=== PATIENT | male | born 1970 | race Caucasian/White ===

== ENCOUNTER 2017-09-10 13:20 | Emergency (ER) | payer OTHER ==
[~2017-09-10] VITALS: Ht 177.8 cm; Wt 106.0 kg
[2017-09-10 13:23] VITALS: BP 130/85; PULSE 67; RESP 18; TEMP 98.2; O2SAT 100
[2017-09-10] MEDS ORDERED: RESP: ALBUTEROL 2.5 MG/IPRATROPIUM 0.5 MG NEB (SCH) NEB ONE (13:45)
[2017-09-10] MEDS ORDERED: AMOX500C PO (13:54)
[2017-09-10] MEDS ORDERED: LIDO1SOL8 SWISH-SWAL (13:54)
[2017-09-10] MEDS ORDERED: VENL150C39 PO (13:54)
[2017-09-10] MEDS ORDERED: MEDR4TAB PO (13:54)
[2017-09-10] MEDS ORDERED: DOXY1LIQ3 PO (14:55)
[2017-09-10] MEDS ORDERED: AZIT250T3 PO (14:55)
[2017-09-10] MEDS ORDERED: ALBU6.7H INH (14:55)
--- NOTE | 2017-09-10 14:55 | PD ---
HPI Chief Complaint: Respiratory Symptoms Time Seen by Provider: 13:39 Travel History International Travel<30 days: No Contact w/Intl Traveler<30days: No Traveled to known affect area: No History of Present Illness HPI So 47-year-old man who presents to the emergency department complaining of flulike symptoms starting about 2 weeks ago, worsening gradually with productive cough and subjective chills and some shortness of breath. He started amoxicillin week ago but is been only taking it once daily by mistake. He started a prednisone pack past 2-3 days as well. He otherwise has been feeling generally well and healthy. No nausea or vomiting. His a history of Crohn's disease, is on Asacol. History Past Medical History Narrative Medical Crohn's disease Tetanus Vaccination: Unknown Influenza Vaccination: No Social History Alcohol Use: Yes (social) Tobacco Use: No Allergies-Medications (Allergen,Severity, Reaction): Coded Allergies: No Known Drug Allergies (Verified Allergy, Unknown, 09/10/17) Reported Meds & Prescriptions Reported Meds & Active Scripts Active Reported Medrol (Methylprednisolone) 4 Mg Tab 4 Mg PO DAILY Lidocaine Viscous Liq 2 % Liqd 5 Ml SWISH-SWAL DIRECTED PRN Venlafaxine ER 24 HR (Venlafaxine HCl) 150 Mg Cap 150 Mg PO DAILY Amoxicillin 500 Mg Cap 500 Mg PO BID Review of Systems Except as stated in HPI: all other systems reviewed are Neg Physical Exam Narrative GENERAL: Well-appearing 47-year-old man, no acute distress. SKIN: Focused skin assessment warm/dry. HEAD: Atraumatic. Normocephalic. EYES: Pupils equal and round. No scleral icterus. No injection or drainage. ENT: No nasal bleeding or discharge. Mucous membranes pink and moist. NECK: Trachea midline. No JVD. CARDIOVASCULAR: Regular rate and rhythm. No murmur appreciated. RESPIRATORY: Coarse breath sounds at posterior lung kahn. Moderate diffuse wheezing. GASTROINTESTINAL: Abdomen soft, non-tender, nondistended. Hepatic and splenic margins not palpable. MUSCULOSKELETAL: No obvious deformities. No clubbing. No cyanosis. No edema. NEUROLOGICAL: Awake and alert. No obvious cranial nerve deficits. Motor grossly within normal limits. Normal speech. PSYCHIATRIC: Appropriate mood and affect; insight and judgment normal. Data Data Last Documented VS Vital Signs Date Time Temp Pulse Resp B/P (MAP) Pulse Ox O2 Delivery O2 Flow Rate FiO2 10/15/17 13:57 18 100 Room Air 09/10/17 13:23 98.2 67 130/85 (100) Orders Orders Chest, Pa & Lat (09/10/17 ) Albuterol-Ipratropium Neb (Duoneb Neb) (09/10/17 13:45) MDM Medical Decision Making Medical Screen Exam Complete: Yes Emergency Medical Condition: Yes Interpretation(s) My review of chest x-ray: Left lower lung infiltrate suggestive of pneumonia. Differential Diagnosis Pneumonia, URI, other Narrative Course Medical decision-making new para 47-year-old man with cough and shortness of breath. Improving a little bit on steroids. He was prescribed antibiotic was taken him half as often as prescribed. He looks well. I think there is a little bit of lower lung infiltrate on the chest x-ray seen in the lateral view of the positive spine sign. Recommend antibiotics, bronchodilators, reassess. Diagnosis Primary Impression: Pneumonia Additional Instructions: Take antibiotics as prescribed. Use Hycodan syrup as a for cough, use caution as it can cause drowsiness. Use bronchodilators as needed for chest tightness. Return to the emergency department for any worsening trouble breathing, chest pain, or any other new or worsening symptoms. Med/Other Pt SpecificInfo: Prescription(s) given Scripts Albuterol 6.7 GM Inh (Proventil Hfa 6.7 GM Inh) 90 Mcg/Act Aer 2 PUFF INH Q6H Y for SHORTNESS OF BREATH, #1 INHALER 0 Refills Prov: Aram Acosta MD 09/10/17 Doxylamine-Dextromethorphan Liq (Robitussin Nighttime Cough Liq) 12.5-30 Mg/10 Ml Soln 10 ML PO Q6H Y for COUGH AND/OR COLD SYMPTOMS, #1 BOTTLE 0 Refills Prov: Aram Acosta MD 09/10/17 Azithromycin (Azithromycin) 250 Mg Tab 250 MG PO DIRECTED for Infection, #6 TAB 0 Refills Take 2 tabs (500 mg) on day 1 then 1 tab daily x 4 days. Prov: Aram Acosta MD 09/10/17 Disposition: 01 DISCHARGE HOME Condition: Stable Aram Acosta MD Sep 10, 2017 14:55
--- NOTE | 2017-09-10 15:13 | RADRPT ---
EXAM DATE/TIME: 09/10/2017 14:05 [facility] COMPARISON: No previous studies available for comparison. INDICATIONS : Cough for 2 weeks. MEDICAL HISTORY : None. SURGICAL HISTORY : None. ENCOUNTER: Initial ACUITY: 2 weeks PAIN SCORE: 4/10 LOCATION: Bilateral upper chest FINDINGS: The cardiac silhouette is enlarged in transverse diameter. There is prominence of the aortic knob is with calcification characteristic of atherosclerotic vascular disease. The lungs are hypoinflated but clear. No effusions are identified. CONCLUSION: 1. Cardiomegaly. No acute pulmonary disease.8 Malik Castrejon MD on September 10, 2017 at 15:11 Board Certified Radiologist. This report was verified electronically.
[2017-09-10 15:46] VITALS: BP 122/75
== END 2017-09-10 15:52 | disposition home or self-care (01) ==
LOC: PHED 13:20
DX: R05 Cough (principal); K50.90 Crohn's disease, unspecified, without complications; J18.9 Pneumonia, unspecified organism
CPT/HCPCS: 71020; 94664; 99284